=== PATIENT | male | born 1950 | race Caucasian/White ===

== ENCOUNTER 2017-10-28 21:43 | Emergency (ER) | payer OTHER, SELFPAY ==
[2017-10-28 21:44] VITALS: BP 127/70; PULSE 65; RESP 14; TEMP 36.6; O2SAT 96; BMI 24.6
--- NOTE | 2017-10-28 21:45 | RAD_ITS ---
STUDY: X-RAY - LEFT WRIST REASON FOR EXAM: Male, 67 years old. Trauma TECHNIQUE: 3 view(s) of the wrist were obtained. COMPARISON: None. FINDINGS: There is a nondisplaced comminuted fracture of the distal radial metaphysis and epiphysis. A fracture line extends to the radiocarpal joint space. There is a nondisplaced ulnar styloid process fracture. Normal distal radioulnar articulation. Normal carpal bones. Normal carpal articulations. There is degenerative arthrosis of the carpometacarpal articulation of the thumb. Normal second through fifth carpometacarpal articulations. Normal visualized metacarpal bones. The soft tissue structures are unremarkable. RAD/Wrist min 3 Views IMPRESSION: Comminuted nondisplaced fracture of the distal radial metaphysis and epiphysis. A fracture line extends to the radiocarpal joint space. There is a nondisplaced ulnar styloid process fracture. Degenerative changes of the first metacarpal greater multangular joint. Electronically Signed: Glen Yang MD at 22:37 EDT , Service support ,
--- NOTE | 2017-10-28 22:49 | ED.RN ---
PT GIVEN FRESH ICE PACK, AND APPLIED TO INJURED ARM. PT INFORMED X RAY RESULTS ARE BACK. PT DENIES ANY FURTHER NEEDS AT THIS TIME.
--- NOTE | 2017-10-28 23:35 | ED.DCSUM_ITS ---
- ER Visit Summary Date of Service: 10/28/17 Chief Complaint: Left wrist injury History of Present Illness: The patient is a 67 M presenting with left wrist injury. Patient caught his foot on a rope and fell backwards. He caught himself with his left upper extremity. He did not hit his head or lose consciousness. He had no symptoms before the fall. He complains of left wrist pain. Denies other complaints. He did not take any medication prior to arrival. Physical Examination: Vitals are stable. Patient is afebrile. Alert no acute distress. HEENT exam is unremarkable. Lungs are clear and equal bilaterally. Heart is regular rate and rhythm. Extremities left wrist diffuse tenderness, painful range of motion. Normal cap refill Skin is warm and dry. No focal neurologic deficit. Remainder of exam is unremarkable. Emergency Department Course and Treatment: Left wrist x-ray shows comminuted nondisplaced fracture of the distal radial metaphysis and epiphysis. A fracture line extends to the radiocarpal joint space. There is a nondisplaced ulnar styloid process fracture. Degenerative changes of the first metacarpal greater multangular joint. Orthoglass splint was applied. He was given one [place] and a prescription for [place]. Advised to follow up with Dr Segovia. Advised to return to the ED for worsening complaints. Disposition: Discharge home Impression: Left wrist fracture status post mechanical fall This note was generated with [employer] dictation software. It may contain incorrect words, spelling, and punctuation that were not noted in review of the chart prior to signing ED Disposition - Plan for ED Patient: Chief Complaint: Upper Extremity Injury Referrals: NOT,DEFINED [Primary Care Provider] -
--- NOTE | 2017-10-28 23:49 | NURSING ---
ASSISTED DR. RODATRE WITH SPLINTING PATIENT'S LEFT ARM.
--- NOTE | 2017-10-28 23:51 | ED.DEP ---
ED Disposition - Plan for ED Patient: Chief Complaint: Upper Extremity Injury Prescriptions: Hydrocodone Bitart/Apap 5-325 [[place] 5MG-325MG] 1 tablet PO Q6H PRN PRN 3 Days #10 tablet PRN Reason: Pain Referrals: NOT,DEFINED [Primary Care Provider] - Juancarlos Segovia DO [STAFF PHYSICIAN] -
--- NOTE | 2017-10-28 23:53 | DCINST.ED_ITS ---
ED Disposition - Plan for ED Patient: Chief Complaint: Upper Extremity Injury Prescriptions: Hydrocodone Bitart/Apap 5-325 [[place] 5MG-325MG] 1 tablet PO Q6H PRN PRN 3 Days # 10 tablet PRN Reason: Pain Referrals: NOT,DEFINED [Primary Care Provider] - Juancarlos Segovia DO [STAFF PHYSICIAN] -
--- NOTE | 2017-10-28 23:54 | DCINST.ED_ITS ---
ED Disposition - Plan for ED Patient: Chief Complaint: Upper Extremity Injury Instructions: ED Fx Wrist General Prescriptions: Hydrocodone Bitart/Apap 5-325 [[place] 5MG-325MG] 1 tablet PO Q6H PRN PRN 3 Days # 10 tablet PRN Reason: Pain Referrals: Juancarlos Segovia DO [STAFF PHYSICIAN] - NOT,DEFINED [Primary Care Provider] -
--- NOTE | 2017-10-28 23:54 | ED.DEP ---
ED Disposition - Plan for ED Patient: Chief Complaint: Upper Extremity Injury Instructions: ED Fx Wrist General Prescriptions: Hydrocodone Bitart/Apap 5-325 [[place] 5MG-325MG] 1 tablet PO Q6H PRN PRN 3 Days #10 tablet PRN Reason: Pain Referrals: Juancarlos Segovia DO [STAFF PHYSICIAN] - NOT,DEFINED [Primary Care Provider] -
[2017-10-28] MEDS: HYDROcodone Bitartrate/Apap 5/325 Tablet PO (23:59)
[2017-10-29] VITALS: BP 119/82; PULSE 64; O2SAT 97
== END 2017-10-29 00:03 | disposition home or self-care (01) ==
LOC: ED 23:59
PROVIDERS: Emergency Provider Emergency Medicine
DX: S52.592A Other fractures of lower end of left radius, initial encounter for closed fracture (principal); Z79.899 Other long term (current) drug therapy; W01.0XXA Fall on same level from slipping, tripping and stumbling without subsequent striking against object, initial encounter; Y93.89 Activity, other specified; Y92.89 Other specified places as the place of occurrence of the external cause; Y99.8 Other external cause status
CPT/HCPCS: 29125; 73110; 99283

== ENCOUNTER 2020-02-22 13:00 | Emergency (ER) | payer MEDICARE, OTHER, SELFPAY ==
[2020-02-22 13:01] VITALS: BP 119/75; PULSE 81; RESP 17; TEMP 36.5; O2SAT 100; BMI 23.6
--- NOTE | 2020-02-22 13:20 | EKG12_ITS ---
Test Reason : Blood Pressure : / mmHG Vent. Rate : 067 BPM Atrial Rate : 067 BPM P-R Int : 128 ms QRS Dur : 080 ms QT Int : 402 ms P-R-T Axes : 041 042 060 degrees QTc Int : 424 ms Normal sinus rhythm with sinus arrhythmia Nonspecific T wave abnormality Abnormal ECG Confirmed by TERRI KU, MAG ([id number]), magazine editor [employer]EIGN FERNANDES ([id number]) on 02/24/2020 11:26:20 AM Referred By: ANN Confirmed By:MAG MURRAY MD
--- NOTE | 2020-02-22 13:20 | RAD_ITS ---
STUDY: X-RAY CHEST REASON FOR EXAM: Male, 69 years old. Cough, fatigue, weakness, COVID. TECHNIQUE: AP COMPARISON: None. FINDINGS: Mild fibrotic changes. No airspace consolidation. 1.2 x 1.7 cm nodule in the right lung base. There is no demonstrated pleural abnormality. Normal size heart. Normal mediastinum and vito. Normal visualized pulmonary arteries. There is atherosclerotic tortuosity of the aortic arch and descending thoracic aorta. There are diffuse degenerative changes of the visualized thoracic spine. Normal visualized ribs, clavicles, and shoulders. There is no demonstrated abnormality of the visualized soft tissue structures of the upper abdomen. RAD/Chest 1 View (Portable) IMPRESSION: 1. No airspace consolidation. 2. Possible nodule in the right lung base measuring up to 1.7 cm. No comparison studies are available. Evaluation with chest CT suggested. Electronically Signed: Siva Dawn MD ([place]) at 14:05 EST , Service support ,
--- NOTE | 2020-02-22 13:21 | ED.VIS.GEN ---
History of Present Illness Chief Complaint: Fatigue Narrative: This patient is a 69-year-old male who was diagnosed with COVID-19. He became ill about a week and a half ago. He reports fever cough generalized fatigue and malaise. He is not really short of breath. He does complain of diarrhea. No nausea or vomiting. No chest pain. He states that he just is not feeling better. No history of underlying heart or lung disease. Past Medical History - Allergies and Home Meds Allergies/Adverse Reactions: Allergies No Known Allergies Allergy (Verified 02/22/20 13:01) Primary Care Physician: [facility] Doctor,Out of [NON-STAFF] - Past Medical History: - - GERD Smoking Status: Never smoker Review of Systems All systems negative except as indicated General: Reports: Malaise. Denies: Fever Eyes: Denies: Visual changes - bilaterally ENT: Denies: Bilateral ear pain Cardiovascular: Denies: Chest pain Respiratory: Reports: Cough. Denies: Dyspnea Gastrointestinal: Reports: Diarrhea. Denies: Nausea, Vomiting Musculoskeletal: Denies: Myalgias, Arthralgias Skin: Denies: Rash Neurological: Denies: Headache Hematologic: Denies: Easy bruising Allergy: Denies: Uticaria Physical Exam Vital Signs/Narrative: Vital Signs Temp Pulse Resp BP Pulse Ox 02/22/20 13:01 97.7 F L 81 17 119/75 100 Inital Vital Signs reviewed: Yes General: Well nourished Head: Normocephalic Eyes: EOMI ENT: Moist mucous membranes Neck: Supple Cardiovascular: Regular rate, Regular rhythm Respiratory: No distress, CTA bilaterally. Negative for: Rales, Rhonchi, Wheezing Skin: Normal color Neurological: Alert Psychological: Normal affect Diagnostic/Tx/Re-eval Impressions Chest X-Ray 02/22/20 13:20 IMPRESSION: 1. No airspace consolidation. 2. Possible nodule in the right lung base measuring up to 1.7 cm. No comparison studies are available. Evaluation with chest CT suggested. Electronically Signed: Siva Dawn MD ([place]) at 14:05 EST , Service support , 02/22/20 13:20 CXR [Chest 1 View (Portable)] [RAD] Stat Laboratory Results 02/22/20 02/22/20 13:30 13:30 WBC 5.3 RBC 4.73 Hgb 15.0 Hct 46.0 MCV 97.3 H MCH 31.7 MCHC 32.6 RDW Std Deviation 43.9 RDW Coeff of Rick 12.3 Plt Count 291 MPV 10.0 Immature Gran % (Auto) 0.200 Neut % (Auto) 70.0 Lymph % (Auto) 16.6 L Murray % (Auto) 12.8 H Eos % (Auto) 0.2 Baso % (Auto) 0.2 Absolute Neuts (auto) 3.7 Absolute Lymphs (auto) 0.88 Nucleated RBC % 0 Sodium 138 Potassium 4.3 Chloride 106 Carbon Dioxide 27.0 Anion Gap 5 BUN 15 Creatinine 0.84 Estim Creat Clear Calc 85.70 Est GFR (MDRD) Af Amer 116 Est GFR (MDRD) Non-Af 96 BUN/Creatinine Ratio 17.9 Glucose 104 Calcium 8.5 - Medical Decision Making EKG shows normal sinus rhythm at a rate of 67 with nonspecific T wave abnormalities. CBC BMP unremarkable. Chest x-ray shows possible nodule at the right lung base otherwise normal. Patient has stable vitals and unremarkable evaluation here. He is not hypoxic. He does not have infiltrates on x-ray. Laboratory studies were unremarkable. He was advised to follow-up with his primary care physician. He was advised of the chest x-ray findings and that he should have a follow-up CT of the chest for further evaluation. He was instructed on specific signs and symptoms to monitor for and understands to return for new or worsening symptoms. Patient discharged. ED Disposition - Plan for ED Patient: Disposition: Home or Assisted Living Diagnosis: COVID-19, Lung nodule Instructions: ED Nodule Solitary Pulmonary Referrals: [facility],Out of [NON-STAFF] -
[2020-02-22 13:42] LABS: Absolute Lymphocyte Count 0.88 X10^3/uL (0.83-4.51); Absolute Neutrophil Count 3.7 X10^3/uL (2.0-7.7); Basophil# 0.01 X10^3/uL; Basophil% 0.2 % (0-1); Eosinophil# 0.01 X10^3/uL; Eosinophils% 0.2 % (0-5); Lymphocyte # 0.88 X10^3/ul (4.0); Lymphocyte % 16.6 % (19-41); Mean Corp Hgb Conc 32.6 g/dL (32-36); Mean Corpuscular Hgb 31.7 pg (27.0-32.0); Mean Corpuscular Volume 97.3 fL (80-94); Monocyte# 0.68 X10^3/uL; Monocyte% 12.8 % (0-10); NRBC Flagged by Analyzer 0 % (0-5); Neutrophil # 3.72 X10^3/uL (2.7-7.7); Platelet Count 291 K/mm3 (150-450); RBC Distribution Width CV 12.3 % (11.6-14.6); RBC Distribution Width SD 43.9 fl (35.1-43.9); Red Blood Count 4.73 M/mm3 (4.6-6.2); White Blood Count 5.3 K/mm3 (4.4-11.0)
[2020-02-22 13:57] LABS: Anion Gap 5 (5-15); BUN 15 mg/dL (7-18); BUN/Creat Ratio 17.9 RATIO (10-20); Calcium,Total 8.5 mg/dL (8.5-10.1); Chloride 106 mmol/L (98-107); Creatinine, Serum 0.84 mg/dL (0.70-1.30); EST Glomerular Filtration Rate 96 mL/min (>60); Est Glom Filt Rate - Afr Amer 116 mL/min (>60); Glucose 104 mg/dL (74-106); Potassium 4.3 mmol/L (3.5-5.1); Sodium Level 138 mmol/L (136-145)
[2020-02-22 14:26] VITALS: BP 130/85; PULSE 65; RESP 16; O2SAT 97
== END 2020-02-22 14:34 | disposition home or self-care (01) ==
PROVIDERS: Emergency Provider Emergency Medicine
DX: U07.1 COVID-19 (principal); K21.9 Gastro-esophageal reflux disease without esophagitis
CPT/HCPCS: 71045; 80048; 85025; 93005; 99282; A4216

== ENCOUNTER 2021-05-24 05:50 | Emergency (ER) | payer MEDICARE, OTHER, SELFPAY ==
[2021-05-24 05:51] VITALS: BP 138/90; PULSE 65; RESP 16; TEMP 36.2; O2SAT 98; BMI 26.0
--- NOTE | 2021-05-24 06:18 | EX.ED.GENINJ ---
HPI History of Present Illness Chief Complaint: Other, Pain/Inj Detail of Chief Complaint: Left lateral neck pain Informant: patient Onset/Context/Timing Onset: Days Quality of Pain: Aching Location: Left lateral neck. Current Severity: Mild Maximum Severity: Mild Associated Symptoms Associated Symptoms: Negative for Parasthesias, Weakness, Loss of function, Inability to ambulate, Loss of consciousness and Amnesia Narrative Narrative: 70-year-old male has degenerative disc disease in his neck and rheumatoid arthritis. He was shoveling snow on Sunday. Said Sunday and Sunday started having left lateral neck pain. No radiation to his arms no weakness or numbness. No chest pain or other complaints. He is never had neck surgery. He denies any fall or injury. Pain is worse with rotation of his neck to the left. Prior similar symptoms: No Recent Illness/Hospitalization: No PFSH PFSH Medical History GERD (gastroesophageal reflux disease) Rheumatoid arthritis Home Medications celecoxib [Celebrex] 200 mg PO DAILY 10/28/17 [History Last Taken Unknown] lansoprazole 1 tab PO DAILY 10/28/17 [History Last Taken Unknown] metaxalone [Skelaxin] 800 mg PO TID 7 Days #21 tab 05/24/21 [Rx Last Taken Unknown] Allergy/AdvReac Type Severity Reaction Status Date / Time No Known Allergies Allergy Verified 05/24/21 05:53 Social History Smoking Status: Never smoker ROS ROS ED ROS Narrative Denies recent illness. Review of Systems ROS Unobtainable: Denies due to encephalopathy Constitutional Constitutional ED: Denies fever(s) Eyes Eyes: Denies change in vision ENT ENT ED: Denies ear pain Cardiovascular Cardiovascular: Denies chest pain Respiratory/Chest Respiratory/Chest: Denies cough or dyspnea Gastrointestinal Gastrointestinal: Denies abdominal pain, diarrhea, nausea or vomiting Genitourinary Genitourinary ED: Denies dysuria Musculoskeletal Musculoskeletal: Reports neck pain; Denies arthralgias, back pain or myalgias Integumentary Denies rash Neurologic Neurologic: Denies headache(s) Psychiatric Psychiatric: Denies depression Endocrine Endocrinology: Denies polyuria Hematologic/Lymphatic Hematologic/Lymphatic: Denies easy bruising Allergic/Immunologic Allergic/Immunologic ED: Denies urticaria EXAM Physical Exam Narrative Exam Narrative: 70-year-old male no acute distress sitting upright in bed. Vital signs stable afebrile. He is in no distress. HEENT exam unremarkable. Pupils round reactive light. Neck trachea midline no lymphadenopathy. He is left lateral muscular tenderness of the paracervical muscles of the posterior neck. He is able do flexion-extension and rotation. Pain is worsened with rotating his neck to the left. Lungs are clear. Heart regular rhythm. Abdomen soft nontender. Moving all 4 extremities. Neurovascularly intact. 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 Dorsi plantarflexion intact. Back nontender. Neurologically is awake and alert with no focal motor deficits. Const Vital Signs: 05/24/21 05:51 05/24/21 05:53 Temperature 97.1 F L Temperature Source Temporal Pulse Rate 65 Respiratory Rate 16 Respiratory Pattern Normal Blood Pressure 138/90 H Blood Pressure Mean 106 Pulse Ox 98 Oxygen Delivery Method Room Air Positive well nourished and well developed; Negative for obese, cachectic, contractures or unkempt General Appearance ED: well developed and NAD; Negative for unkempt, cachectic or contractures Nutritional Appearance: Negative for cachectic or obese HEENT atraumatic; Negative for trauma or tenderness Eyes PERRL and EOMs intact bilaterally Neck full ROM Neck Narrative: Left lateral posterior paracervical muscle soft tissue tenderness. General: tenderness Chest Wall inspection of chest normal and palpation of chest normal Resp normal respiratory effort and clear to auscultation bilaterally Auscultation: Negative for rales, rhonchi or wheezes Cardio regular rhythm, S1 normal heart sound, S2 normal heart sound and no murmurs Rate: regular rate GI normal to inspection, nondistended, normoactive bowel sounds, non-tender, non-distended and no masses Auscultation: normoactive bowel sounds Palpation: soft; Negative for tender, guarding or rebound tenderness present Back/Spine normal to inspection and no thoracic nor lumbar tenderness General Back: Negative for CVA tenderness Thoracic Spine / Upper Back: Negative for thoracic spinal tenderness Extremity normal to inspection and full ROM General Extremety ED: Negative for deformity, edema or tenderness General Extremity: Negative for deformity or edema Neuro oriented x3, moves all extremities, no focal motor deficits and no sensory deficits noted Sensorium / Orientation: alert, oriented to person, oriented to place and oriented to time; Negative for orientation impaired, lethargic or stuporous Motor Exam: strength 5/5 throughout Psych mental status grossly normal and thought process normal Appearance: Negative for unkempt Mood & Affect: Negative for depressed or tearful Skin no rashes or lesions noted, no wounds and no jaundice MDM MDM MDM Narrative Medical decision making narrative: 70-year-old male left lateral neck pain consistent historically and by exam with muscle strain and spasm. He and I discussed different treatment options. Will be placed on Skelaxin 3 times daily for a week. Warm compresses, shower and bath. Massage. Limited Motrin. Discharge Plan Triage Chief Complaint: Other, Pain/Inj ED Provider: Hilario Leiva Dx/Rx/DC Orders Clinical Impression: Muscle spasm Instructions: ED Muscle Spasm Prescriptions: New metaxalone [Skelaxin] 800 mg tablet 800 mg PO TID 7 Days Qty: 21 RF: 0 No Action celecoxib [Celebrex] 200 MG capsule 200 mg PO DAILY RF: 0 lansoprazole 30 capsule,delayed release(DR/EC) 1 tab PO DAILY RF: 0 Primary Care Provider: Carlos Mireles Referrals: Michael Tang [Other] Activity Restrictions/Additional Instructions: Hot shower, warm compresses and massage to your neck to help relax the muscle. Motrin 400 mg 2-3 times a day for 5 days to help with pain and inflammation. Do not use the Motrin if already using Celebrex. Skelaxin the muscle relaxant 1 pill 3 times a day for 7 days or until pain-free. Disposition Disposition: Home, Self Care
== END 2021-05-24 06:33 | disposition home or self-care (01) ==
LOC: ED 06:24
PROVIDERS: Emergency Provider Emergency Medicine; PCP Family Medicine; Visit Provider Emergency Medicine
DX: M62.838 Other muscle spasm (principal); M06.9 Rheumatoid arthritis, unspecified; K21.9 Gastro-esophageal reflux disease without esophagitis; Z79.899 Other long term (current) drug therapy
CPT/HCPCS: 36430; 99282

== ENCOUNTER 2021-07-25 10:16 | Outpatient (CLI) | payer MEDICARE, OTHER, SELFPAY | END 2021-07-25 23:59 | disposition home or self-care (01) | PROVIDERS: PCP Family Medicine; Visit Provider Dermatology | DX: L01.01 Non-bullous impetigo (principal) | CPT/HCPCS: 87070; 87077; 87186; 87205 ==

== ENCOUNTER → 2022-05-04 | Outpatient (CLI) | payer MEDICARE, OTHER, SELFPAY | END | disposition home or self-care (01) | LOC: LABSPEC 13:30 | PROVIDERS: PCP Family Medicine; Referring Provider Dermatology; Visit Provider Dermatology | DX: L03.011 Cellulitis of right finger (principal); Z09 Encounter for follow-up examination after completed treatment for conditions other than malignant neoplasm; Z86.14 Personal history of Methicillin resistant Staphylococcus aureus infection | CPT/HCPCS: 87070; 87077; 87186; 87205 ==